=== PATIENT | female | born 1990 | race Two or more races ===

== ENCOUNTER 2024-12-06 12:32 | Emergency (ER) | payer MEDICAID, SELFPAY ==
[2024-12-06 12:33] VITALS: BMI 34.7
[2024-12-06 12:49] VITALS: BP 167/99; PULSE 71; RESP 18; TEMP 36.7; O2SAT 98
--- NOTE | 2024-12-06 12:49 | EKG_ITS ---
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
--- NOTE | 2024-12-06 12:49 | XR_ITS ---
Examination: CT abdomen and pelvis without contrast. Coronal 3-D reconstructions. Sagittal 2-D reconstructions. Date and time of exam:December 06, 2024 1539 hours Comparison July 16, 2021 INDICATIONS: Generalized abdominal pain flank pain today CTDI: vol (mGy): 9.71 DLP: (mGycm): 538 Technique: Axial images of the abdomen have been obtained, 3 mm slice thickness Intravenous contrast material has not been administered. Low dose protocols were performed. One or more of the following dose reduction techniques were used; automated exposure control, adjustment of the mA and/or KV according to patient size, use of iterative reconstruction technique. Findings: No focal liver or splenic lesions No gallstones No pancreatic or adrenal mass. No renal or ureteral calculi, no hydronephrosis Bowel sutures No bowel obstruction No pericecal inflammatory change No diverticulitis Anteverted uterus Mild to moderate free fluid in the pelvis Moderate disc narrowing posteriorly L5-S1 IMPRESSION: No renal or ureteral calculi, no hydronephrosis No bowel obstruction appendicitis or diverticulitis Mild to moderate free fluid in the pelvis, recommend pelvic sonography follow-up
--- NOTE | 2024-12-06 12:49 | PD.EDRME ---
Rapid Medical Screening Exam RME Arrival date/time: 12/06/24 12:32 34-year-old female presents emergency department with complaints of chest pain abdominal pain and back pain Chief Complaint: Abdominal Pain Vital signs: Vital Signs Temperature 98.1 F 12/06/24 12:49 Pulse Rate 71 12/06/24 12:49 Respiratory Rate 18 12/06/24 12:49 Blood Pressure 167/99 H 12/06/24 12:49 Pulse Oximetry (%) 98 12/06/24 12:49 Oxygen Delivery Method Room Air 12/06/24 12:49
--- NOTE | 2024-12-06 12:50 | XR_ITS ---
Examination: PA lateral chest 2 views TECHNIQUE: Upright PA lateral chest 2 views Date and time: December 06, 2024 1252 hours Comparison July 16, 2021 INDICATIONS: Chest pain today FINDINGS: Normal heart size Lungs are clear. The osseous structures are intact IMPRESSION: No active disease.
[2024-12-06 13:39] LABS: Collection Type, Urine Clean Catch
[2024-12-06 13:47] LABS: Basophils # (Auto) 0.0 Thou/mm3 (0.0-0.2); Basophils % (Auto) 0 % (0-2.5); Eosinophils # (Auto) 0.0 Thou/mm3 (0.0-0.5); Eosinophils % (Auto) 0 % (0-10); Hematocrit 24.5 % (36.0-46.0); Immature Granulocytes Auto 0.02 Thou/mm3 (0.00-0.00); Lymphocytes # (Auto) 0.6 Thou/mm3 (1.0-4.8); Lymphocytes % (Auto) 13 % (10-50); Mean Corpuscular HGB Conc 26.9 g/dl (31.0-37.0); Mean Corpuscular Hemoglobin 16.7 pg (25.0-35.0); Mean Corpuscular Volume 62 fL (80-100); Monocytes # (Auto) 0.4 Thou/mm3 (0.0-0.8); Monocytes % (Auto) 8 % (0-12); Neutrophils # (Auto) 3.9 Thou/mm3 (1.8-7.7); Neutrophils % (Auto) 78 % (37-80); Nucleated Red Blood Cell # 0.00 Thou/mm3 (0.00-0.00); Nucleated Red Blood Cell % 0 /100 WBC (0); Platelet Count 313 Thou/mm3 (140-440); RDW Standard Deviation 39.9 fL (36.4-46.3); Red Blood Count 3.95 Miln/mm3 (4.00-5.20); White Blood Count 4.9 Thou/mm3 (3.6-11.0)
[2024-12-06 13:52] LABS: HCG Qualitative,Urine Negative
[2024-12-06 13:53] LABS: Bacteria,Urine 1+; Bilirubin,Urine Negative (Negative); Blood,Urine Negative (Negative); Clarity,Urine Clear (Clear/Hazy); Color,Urine Lt-Yellow (Lt Yel-Yel); Glucose, Urine Negative (Negative); Ketones,Urine Negative (Negative); Leukocyte Esterase,Urine Negative (Negative); Nitrite,Urine Negative (Negative); PH,Urine 6.0 (5.0-7.0); Protein,Urine Negative (Neg - Trace); RBC,Urine 1 /hpf (0-3); Specific Gravity,Urine 1.026 (1.001-1.035); Squamous Epithelial Cell,Urine 2 /hpf (0-5); Urobilinogen,Urine Negative mg/dL (0.0-1.0); WBC,Urine 2 /hpf (0-5)
[2024-12-06 13:54] LABS: Culture Indicated,Urine Yes
[2024-12-06 14:00] LABS: Alanine Aminotransferase 12 U/L (10-49); Albumin, Serum 4.4 gm/dL (3.5-5.0); Albumin/Globulin Ratio 1.6 (1.2-2.2); Alkaline Phosphatase 62 U/L (46-116); Anion Gap 8 (7-16); Aspartate Amino Transferase 37 U/L (0-34); BUN/Creatinine Ratio 10 Ratio (12-20); Bilirubin,Total 0.5 mg/dL (0.3-1.2); Blood Urea Nitrogen 7 mg/dL (9-23); Calcium 9.0 mg/dL (8.3-10.6); Calcium (Corrected) 9.0 mg/dL (8.5-10.1); Carbon Dioxide 21.6 mMol/L (20.0-31.0); Chloride 110 mMol/L (98-107); Creatinine (Component) 0.7 mg/dL (0.6-1.3); Estimated Creatinine Clearance 113.2 mL/min (>60); Globulin 2.8 gm/dL (2.3-3.5); Glucose 89 mg/dL (74-106); Lipase 19 U/L (12-53); Osmolality,Calculated 276 (275-295); Potassium 3.9 mMol/L (3.4-5.1); Sodium 140 mMol/L (136-145); Total Protein 7.2 gm/dL (5.7-8.2); Troponin I < 0.002 ng/mL (0.0-0.045); eGFR > 60 See Note
[2024-12-06 14:15] LABS: Hemoglobin 6.6 g/dL (12.0-16.0)
--- NOTE | 2024-12-06 14:15 | PC.NURSE ---
CALL FROM [facility] IN [facility]. PT'S HGB 6.6, HCT 24.5. RESULTS PUT IN COMMENT FOR PROVIDER TO SEE.
[2024-12-06 16:53] LABS: Ferritin 2 ng/mL (7.3-270.7); Iron 11 mcg/dL (50-170); Percent Iron Saturation 3 % (20-55); Total Iron Binding Capacity 282 mcg/dL (250-425); Unsaturated Iron Binding 271 (225-295)
--- NOTE | 2024-12-06 18:15 | PC.NURSE ---
PT LEFT AMA AND SAID SHE WILL COME BACK IN THE MORNING EARLY FOR THE BLOOD TRANSFUSION. PT STATES SHE HAS A 10 YEAR OLD AND 7 YEAR OLD HOME ALONE AND SHE DOES NOT WANT THEM HOME ALONE AT NIGHT. HAS LEFT FOR WORK. AMA FORM SIGNED.
== END 2024-12-06 18:19 | disposition left against medical advice (07) ==
LOC: SERX 13:55
PROVIDERS: Nurse Practitioner Primary Care; Emergency Provider Emergency Medicine
DX: R10.84 Generalized abdominal pain (principal); R07.9 Chest pain, unspecified; M54.9 Dorsalgia, unspecified; Z53.29 Procedure and treatment not carried out because of patient's decision for other reasons
CPT/HCPCS: 36415; 36430; 71046; 74176; 80053; 81001; 81025; 82728; 83540; 83550; 83690; 84484; 85025; 86850; 86900; 86901; 86923; 87077; 87086; 87186; 93005; 99284

== ENCOUNTER 2024-12-07 08:12 | Inpatient (IN) | payer MEDICAID, SELFPAY ==
[2024-12-07] VITALS (22 sets, daily range): BP systolic 131–178; BP diastolic 74–98; PULSE 51–88; RESP 12–20; TEMP -12.6–37.1; O2SAT 95–100; BMI 34.7
--- NOTE | 2024-12-07 08:25 | PD.EDRME ---
Rapid Medical Screening Exam RME Arrival date/time: 12/07/24 08:12 34-year-old female with no known medical history presents to the emergency room with chief complaint of hemoglobin level. Patient was seen yesterday and had a hemoglobin level of 6.6 but eloped due to not having childcare at home. I have greeted and performed a focused initial assessment of this patient. A comprehensive ED assessment and evaluation of the patient, analysis of all test results, and completion of the medical decision making process will be conducted by additional ED providers. Chief Complaint: General Adult/Misc Complain Time Seen by Provider: 12/07/24 08:19 Vital signs: Vital Signs Temperature 98.5 F 12/07/24 08:18 Pulse Rate 83 12/07/24 08:18 Respiratory Rate 18 12/07/24 08:18 Blood Pressure 148/88 H 12/07/24 08:18 Pulse Oximetry (%) 100 12/07/24 08:18 Oxygen Delivery Method Room Air 12/07/24 08:18 Vital signs reviewed by provider: Yes
[2024-12-07 08:49] LABS: Basophils # (Auto) 0.0 Thou/mm3 (0.0-0.2); Basophils % (Auto) 1 % (0-2.5); Eosinophils # (Auto) 0.0 Thou/mm3 (0.0-0.5); Eosinophils % (Auto) 1 % (0-10); Hematocrit 25.8 % (36.0-46.0); Immature Granulocytes Auto 0.00 Thou/mm3 (0.00-0.00); Lymphocytes # (Auto) 0.8 Thou/mm3 (1.0-4.8); Lymphocytes % (Auto) 25 % (10-50); Mean Corpuscular HGB Conc 26.7 g/dl (31.0-37.0); Mean Corpuscular Hemoglobin 16.6 pg (25.0-35.0); Mean Corpuscular Volume 62 fL (80-100); Monocytes # (Auto) 0.2 Thou/mm3 (0.0-0.8); Monocytes % (Auto) 7 % (0-12); Neutrophils # (Auto) 2.1 Thou/mm3 (1.8-7.7); Neutrophils % (Auto) 65 % (37-80); Nucleated Red Blood Cell # 0.00 Thou/mm3 (0.00-0.00); Nucleated Red Blood Cell % 0 /100 WBC (0); Platelet Count 337 Thou/mm3 (140-440); RDW Standard Deviation 40.1 fL (36.4-46.3); Red Blood Count 4.15 Miln/mm3 (4.00-5.20); White Blood Count 3.3 Thou/mm3 (3.6-11.0)
--- NOTE | 2024-12-07 08:58 | PC.NURSE ---
CALL FROM [facility] IN [facility]. PT'S HGB IS 6.9. RESULTS NOTED ON COMMENTS FOR MD TO SEE.
[2024-12-07 08:59] LABS: Hemoglobin 6.9 g/dL (12.0-16.0)
[2024-12-07 09:03] LABS: INR 1.0 (0.9-1.3); Partial Thromboplastin Time 21.6 Seconds (22.0-36.0); Prothrombin Time 11.0 Seconds (9.0-12.2)
[2024-12-07 09:05] LABS: Alanine Aminotransferase 12 U/L (10-49); Albumin, Serum 4.5 gm/dL (3.5-5.0); Albumin/Globulin Ratio 1.6 (1.2-2.2); Alkaline Phosphatase 61 U/L (46-116); Anion Gap 8 (7-16); Aspartate Amino Transferase 30 U/L (0-34); BUN/Creatinine Ratio 14 Ratio (12-20); Bilirubin,Total 0.6 mg/dL (0.3-1.2); Blood Urea Nitrogen 11 mg/dL (9-23); Calcium 8.8 mg/dL (8.3-10.6); Calcium (Corrected) 8.8 mg/dL (8.5-10.1); Carbon Dioxide 23.0 mMol/L (20.0-31.0); Chloride 110 mMol/L (98-107); Creatinine (Component) 0.8 mg/dL (0.6-1.3); Estimated Creatinine Clearance 99.0 mL/min (>60); Globulin 2.8 gm/dL (2.3-3.5); Glucose 85 mg/dL (74-106); Osmolality,Calculated 279 (275-295); Potassium 3.9 mMol/L (3.4-5.1); Sodium 141 mMol/L (136-145); Total Protein 7.3 gm/dL (5.7-8.2); eGFR > 60 See Note
--- NOTE | 2024-12-07 12:50 | EDNOTE_ITS ---
ED General RME/HPI General Chief complaint: General Adult/Misc Complain Stated complaint: HGB 6.6; SENT BY PCP FOR BLOOD TRANSFUSION Time Seen by Provider: 12/07/24 08:19 Arrival date/time: 12/07/24 08:12 RME / HPI RME / HPI narrative: 12/07/24 08:12 34-year-old female with no known medical history presents to the emergency room with chief complaint of hemoglobin level. Patient was seen yesterday and had a hemoglobin level of 6.6 but eloped due to not having childcare at home. I have greeted and performed a focused initial assessment of this patient. A comprehensive ED assessment and evaluation of the patient, analysis of all test results, and completion of the medical decision making process will be conducted by additional ED providers. DR. JOHNSON MAIN ED EVALUATION 34 year old female patient with history of hypertension, s/p gastric bypass, and pancreatitis presents to the ED referred by her PCP for low hemoglobin levels. Patient states she was evaluated here yesterday for abdominal pain located most to the epigastric region that radiated to her mid back. Accompanied by nausea and vomiting. States she had lab work done. However eloped and PCP today advised she return for a blood transfusion. Reports the abdominal pain today is dull in nature, rated as mild. Denies any obvious bleeding or black/bloody stools. No other associated symptoms reported. Patient mentioned she has received a blood transfusion once before after her C- section 7 years ago. Related Data Home Medications ?Medication ?Instructions ?Recorded ?Confirmed Vits W-Ca,Fe,Fa(<1MG) 1 tab PO QDAY #0 tabs 1 05/17/13 () Allergies Allergy/AdvReac Type Severity Reaction Status Date / Time No Known Allergies Allergy Verified 12/07/24 08:15 Review of Systems Review of Systems Systems Reviewed: All systems reviewed, normal except as documented Past Medical History Past Medical History CARDIAC: Positive Hypertension REPRODUCTIVE: Positive Previous Pregnancies Surgical History SURGICAL: Positive Abdominal Surgery and Section Social History SMOKING STATUS: Never smoker SUBSTANCE USE: does not use ED Exam Narrative Physical exam: GENERAL APPEARANCE: alert and oriented x 4, well-developed, well-nourished, pale HEENT: Normocephalic, atraumatic; pupils equal, round, reactive to light; EOMI; mucous membranes pink, moist; oropharynx clear NECK: Supple LUNGS: CTABL; no wheezes, no rales, no rhonchi HEART: Regular rate, regular rhythm; normal S1, S2; no murmurs ABDOMEN: non distended; normal BS; soft, mild epigastric tenderness, no guarding, no rebound; no masses, no organomegaly, no hernia BACK: no CVA tenderness EXTREMITIES: atraumatic; no edema NEUROLOGIC: awake; alert and oriented x4; cranial nerves II-XII grossly intact; no focal sensory or motor deficits PSYCHIATRIC: appropriate mood and affect SKIN: warm, dry, pale; no rashes Course Quality Measures none Orders Category Date Time Status Occult Blood,Stool (Nursing) NOW Care 12/07/24 12:58 Active Transfuse,blood/blood products NOW Care 12/07/24 10:15 Active Consult to Gastroenterology Stat Cons 12/07/24 16:58 Ordered CBC Stat Lab 12/07/24 08:37 Completed CMP [Comprehensive Metabolic Panel] Stat Lab 12/07/24 08:37 Completed PT [Prothrombin Time with INR] Stat Lab 12/07/24 08:37 Completed PTT [Partial Thromboplastin Time] Stat Lab 12/07/24 08:37 Completed Red Blood Cells Stat Lab 12/07/24 08:37 Completed Type and Screen Stat Lab 12/07/24 08:37 Completed Vital Signs Vital signs: Vital Signs Temperature 98.5 F 12/07/24 08:18 Pulse Rate 83 12/07/24 08:18 Respiratory Rate 18 12/07/24 08:18 Blood Pressure 148/88 H 12/07/24 08:18 Pulse Oximetry (%) 100 12/07/24 08:18 Oxygen Delivery Method Room Air 12/07/24 08:18 Pulse ox is 100% on room air which is adequate. Discharge Plan Plan Patient Disposition: Admit Acute Care w/in Hospital Prescriptions/Referrals Prescriptions/Med Rec: No Action Vits W-Ca,Fe,Fa(<1MG) () 1 TAB tablet 1 tab PO QDAY Qty: 0 Referrals: No Primary/Family,Physician [Primary Care Provider] - In 1 week Problem List Clinical Impression: Upper GI bleed, Symptomatic anemia Patient/Caregiver Discharge Instructions Print Language: Citizen Of [place] Stand Alone Forms: Lori Award Info., Patient Portal Info Letter MDM Narrative MDM hospital course: I, Lizbeth Kaplan, am scribing for and in the presence of Dr. Johnson. Clinical Information Provided by patient Medical Records Reviewed [facility] I reviewed admission from 07/16/2021 through 07/18/2021 Meds/Rx Considered, not Ordered None Labs/Rad/Tests considered, not Ordered None Chronic Illness/Social Conditions which may negatively complicate care or outcome(s)-explain: None or not applicable EKG EKG not done Lab Interpretation Labs: interpreted by ne Lab(s) interpretation(s): Patient is anemic, H/H 6.9/25.8 Imaging Imaging interpretation: none Medication Administration(s) none Consultations/Discussions re: Management Consult #1: Date/time: 12/07/24 4:53 pm Physician, specialty, service, details: I spoke with GI Dr. Kaplan. Discussed patients PMHx, HPI, ED course, exam findings, labs results. He agrees to consult. Diagnosis Most likely dx, and/or detailed dx discussion: Upper GI bleed Symptomatic anemia Dispositon Disposition: Admit
--- NOTE | 2024-12-07 18:18 | PC.CC ---
Patient is a 34 year-old female who presents to the hospital for HGB 6.6, sent in for blood transfusion. Monse TORREZ made [id number] contact with patient. ASW introduced self, role, and reason for visit.?Patient appeared alert and oriented to self, location, and situation.?Patient was pleasant and engaged in initial assessment. Patient confirmed information on demographics and reports to living at home with her significant other, John Crowe and her children. Patient confirmed that her next of kin is John. Patient reports she is employed part-time at [email or web address]. Per patient, she ambulates independently and is able to complete her own ADLs. Patient reports she is overall fairly healthy. Patient does not have a primary provider. For prescription medications she uses [facility]. Upon discharge the patient plans to return back home. assessment services manager to follow up with any discharge needs.
[2024-12-07 19:16] LABS: Hematocrit 30.1 % (36.0-46.0)
[2024-12-07 19:22] LABS: Hemoglobin 8.7 g/dL (12.0-16.0)
--- NOTE | 2024-12-07 20:09 | ESHP_ITS ---
<Statement entered by Jen Alva MD - 12/08/24 15:34> I have reviewed the note and agree with the resident's assessment & plan with exceptions as below. I have personally reviewed labs, imaging, home meds/prior records, examined the patient, formulated and discussed management plan with the IM team. Patient examined at bedside today. Patient reports having low hemoglobin and was sent here after labs were drawn. She reports previously having 2 C-sections in which one of them she needed a blood transfusion for. She denies taking any blood thinners at this time. Denies any recent travel. Sometimes takes ibuprofen for her menstrual cycle once a month. She has never had a EGD or colonoscopy before. She does endorse drinking history in which she has been trying more lately. Will workup patient for GI bleed including varices. Patient to get EGD tonight by Dr. Kaplan. GI on consult, appreciate recs. Patient may need colonoscopy after. #Acute blood loss anemia #Symptomatic anemia DDx: GI Bleed, Cancer, chronic anemia, medication induced FOBT: Pending NSAID use: Ibuprofen Blood thinner use: None Plan: ? Trend CBC ? Transfusion protocol hemoglobin below 7 ? Avoiding any NSAIDs ? SCDs ? Protonix 40 mg BID Jen Alva, PGY-2 Internal Medicine Documentation for date of: 12/07/24 HPI History of Present Illness History of present illness: 34-year-old female with a history of hypertension, status post gastric bypass, and prior pancreatitis presented to the ED per referral from her PCP due to low hemoglobin. Today, her PCP advised return to the ED after reviewing labs, noting a hemoglobin of 6.6 and recommending blood transfusion. She admits to lightheadedness with bending over or standing up abruptly. Denies hematemesis, melena, hematochezia, or other associated symptoms. Denies N/V/D, or fevers. She reports receiving one prior blood transfusion following a approximately seven years ago. She was evaluated in the ED yesterday for worsening epigastric abdominal pain radiating to the mid-back, associated with nausea and vomiting, after having a couple beers the night before. Lab work was obtained, but the patient left prior to completion of care due to lack of childcare. Currently, she describes the abdominal pain as dull and mild. Patient has regular 28 day cycles and reports heavy bleeding the first couple of days into her menstruation. ED Course: In the ED, BP 158/94, HR 71, O2 sat 99% on room air. Labs WBC 3.3, hemoglobin 6.9, MCV 62. Patient was given 2 units of pRBC and hemoglobin nain to 8.7. Patient was also placed on IV NS at 75 mL/h for 1 L. And a stat GI consult was placed for colonoscopy on the same night as inpatient Allergies: NKDA PMHx: Hypertension PSHx: Abdominal Surgery and Section FHx: Diabetes in both parents. SHx: Denies smoking, tobacco use, or illicit drug use. Patient reports drinking 6 cans of beer every other weekend. Reason for Admission: Pt is being admitted for work up of her acute onset anemia. In the setting of recent epigastric pain, an upper GI bleeding source needs to be evaluated by inpatient emergent EGD, Review of Systems Review of Systems Narrative Review of Systems: 12 point ROS was reviewed and is otherwised negative unless stated directly in the HPI Exam Vital Signs Temp Pulse Resp BP Pulse Ox O2 Del Method 98.8 F 71 16 158/94 H 99 Room Air 12/07/24 19:52 12/07/24 19:52 12/07/24 19:52 12/07/24 19:52 12/07/24 19:52 12/07/24 19:52 Narrative Exam General: Alert and oriented x3, No apparent distress. Skin: Intact, Warm, no rashes. HEENT: Normocephalic, Atraumatic. Normal neck range of motion, Supple. Trachea midline. Respiratory: Lungs are clear to auscultation, Breath sounds are equal bilaterally with equal chest expansion. Cardiovascular: RRR, normal S1, S2, No murmurs. Distal pulses 2+ Abdomen: non distended; normal BS; soft, mild epigastric tenderness, no guarding, no rebound; no masses, no organomegaly, no hernia Musculoskeletal/Extremities: No erythema, swelling, tenderness of any joints. No edema of BLE. DP pulses +2/3 b/l. Full active ROM of all four extremities. Neurologic: NEURO: Oriented x3, cranial nerves II to XII grossly intact. Cerebellar exam (bjhbwz-es-rbhz, kvak-dx-oini) intact. Muscle strength 5/5 on UE and LE b/l, Moves extremities x4. Sensation intact to gross touch along C6-T1 and L2-S1 dermatomes. No focal neurologic deficits noted Psych: Thoughts linear and responses appropriate. Results: Labs 12/08/24 12:43 12/08/24 03:52 Labs: Short CBC 12/07/24 12/07/24 Range/Units 08:37 18:45 WBC 3.3 L (3.6-11.0) Thou/mm3 Hgb 6.9 L* 8.7 L D (12.0-16.0) g/dL Hct 25.8 L 30.1 L (36.0-46.0) % Plt Count 337 (140-440) Thou/mm3 BMP 12/07/24 08:37 Sodium 141 Potassium 3.9 Chloride 110 H Carbon Dioxide 23.0 BUN 11 Creatinine 0.8 Glucose 85 Calcium 8.8 Liver Function 12/07/24 Range/Units 08:37 Total Bilirubin 0.6 (0.3-1.2) mg/dL AST 30 (0-34) U/L ALT 12 (10-49) U/L Alkaline Phosphatase 61 (46-116) U/L Albumin 4.5 (3.5-5.0) gm/dL Quality Measures Quality Measures none Medications Home Medications and Allergies Home Medications ?Medication ?Instructions ?Recorded ?Confirmed ?Type No Known Home Medications 12/07/2411/10 History Allergies Allergy/AdvReac Type Severity Reaction Status Date / Time No Known Allergies Allergy Verified 12/07/24 08:15 Visit Medications Sodium Chloride (Ns) 1,000 mls @ 75 mls/hr IV .[id number] RAJAN Stop: 12/08/24 07:53 Assessment & Plan Plan Assessment 34 year old female patient with history of hypertension, s/p gastric bypass, and pancreatitis presented to the ED on 12/07/2024 referred by her PCP for low hemoglobin levels. #Upper GI Bleed #Symptomatic anemia #Acute blood loss anemia Hgb 6.9 at presentation which nain to 8.7 after transfusing 2U of PRBC. As noted above, patient reports lightheadedness with abrupt standing or bending over. Lipase 19 AST 30, ALT 12, and Alk Phos 61 wnl. Plan: GI consulted, who will do EGD this PM. NPO until the procedure. Monitor Hgb with follow up H&H and transfuse if Hgb <7. CBC, CMP, Mg, and PO4 AM draw FOBT #Hypertension Resume home meds as inpatient after medication reconciliation #s/p gastric bypass #h/o Pancreatitis Health Maintenance: Disposition: Med Surg Diet: NPO PPx DVT: PPx GI: Code status: Full This case was discussed with my attending physician, Dr. Nguyen, and senior resident Dr Alva. 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 The patient has previous gastric bypass surgery. She has hypertension. She had anemia before and received blood transfusion during . The patient will have blood anemia workup possible GI studies. I discussed with and supervised the resident physician who took care of this patient. I agree with the assessment and plan as above. A 47
--- NOTE | 2024-12-07 20:32 | ESCONSULT_ITS ---
HPI Data of Consult Requesting Physician: Prince Nguyen MD Primary Care Provider: Physician No Primary/Family Consult Narrative Reason for consult: Posthemorrhagic anemia FOBT positive hemoglobin 6.6 g History of present illness: 34 years old female I been called by the ER physician to evaluate the patient for a low hemoglobin hematocrit of 6.6 with Hemoccult positive stool She does drink alcohol And she has a history of hypertension and gastric bypass bariatric procedure in the past She denies any jamil history of hematemesis melanotic stools or hematochezia She does not excessively bleed except the first 2 days of her menstruation cycle is somewhat heavy She is takes ibuprofen on a routine basis and she took 2 ibuprofens this morning for headache but normally she takes it during her menstrual cycle cc:: cc: Prince Nguyen MD Review of Systems Review of Systems Systems Reviewed: All systems reviewed, normal except as documented Past Medical History Surgical History OTHER SURGICAL HX: As in the history of present illness Meds Home Medications and Allergies Home Medications ?Medication ?Instructions ?Recorded ?Confirmed ?Type Vits W-Ca,Fe,Fa(<1MG) 1 tab PO QDAY #0 tabs 1 05/17/13 History () Allergies Allergy/AdvReac Type Severity Reaction Status Date / Time No Known Allergies Allergy Verified 12/07/24 08:15 Exam Vital Signs Temp Pulse Resp BP Pulse Ox O2 Del Method 98.8 F 71 16 158/94 H 99 Room Air 12/07/24 19:52 12/07/24 19:52 12/07/24 19:52 12/07/24 19:52 12/07/24 19:52 12/07/24 19:52 Constitutional Comments: Alert oriented Routine Respiratory Exam Comments: Normal to auscultation Routine Abdominal Exam Comments: Soft nontender Results Labs 12/07/24 18:45 12/07/24 08:37 Labs: Short CBC 12/07/24 12/07/24 Range/Units 08:37 18:45 WBC 3.3 L (3.6-11.0) Thou/mm3 Hgb 6.9 L* 8.7 L D (12.0-16.0) g/dL Hct 25.8 L 30.1 L (36.0-46.0) % Plt Count 337 (140-440) Thou/mm3 BMP 12/07/24 08:37 Sodium 141 Potassium 3.9 Chloride 110 H Carbon Dioxide 23.0 BUN 11 Creatinine 0.8 Glucose 85 Calcium 8.8 Liver Function 12/07/24 Range/Units 08:37 Total Bilirubin 0.6 (0.3-1.2) mg/dL AST 30 (0-34) U/L ALT 12 (10-49) U/L Alkaline Phosphatase 61 (46-116) U/L Albumin 4.5 (3.5-5.0) gm/dL Assessment and Plan Additional Assessment & Plan Additional Plan: # Occult GI bleeding # Acute posthemorrhagic anemia # Chronic liver 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
[2024-12-07] MEDS: SODIUM CHLORIDE 0.9% 1000 ML 1,000 ML 75 ML IV (20:40)
--- NOTE | 2024-12-07 22:22 | SUR.PHASEI ---
2222 Patient arrived to recovery resting comfortably in [facility], drowsy and talking with staff, breathing unlabored, vital signs stable, denies pain and nausea, report received from Jenni RN
--- NOTE | 2024-12-07 22:57 | SUR.PHASEI ---
2255 Report given to Belia ALSTON, patient meets discharge criteria from recovery, awake and alert, breathing unlabored, vital signs stable, denies pain and nausea 225 Patient transported via gurney to room 260 without incident, Belia ALSTON promptly arrived to patients room, patient able to ambulate from gurney to bed with stand-by assist to the restroom, patient in the restroom when this ticket writer left patients room with Belia ALSTON at bedside to assist patient.
[2024-12-07] MEDS: NA SU/NAHCO3/KC/PEG (Golytely) 4,000 ML BTL 4000 ML PO (23:21)
[2024-12-08] VITALS (17 sets, daily range): BP systolic 133–179; BP diastolic 75–103; PULSE 51–96; RESP 14–19; TEMP 36.2–36.8; O2SAT 95–100; BMI 33.4
[2024-12-08 04:59] LABS: Basophils # (Auto) 0.0 Thou/mm3 (0.0-0.2); Basophils % (Auto) 1 % (0-2.5); Eosinophils # (Auto) 0.0 Thou/mm3 (0.0-0.5); Eosinophils % (Auto) 1 % (0-10); Hematocrit 27.7 % (36.0-46.0); Immature Granulocytes Auto 0.01 Thou/mm3 (0.00-0.00); Lymphocytes # (Auto) 1.4 Thou/mm3 (1.0-4.8); Lymphocytes % (Auto) 36 % (10-50); Mean Corpuscular HGB Conc 28.2 g/dl (31.0-37.0); Mean Corpuscular Hemoglobin 18.6 pg (25.0-35.0); Mean Corpuscular Volume 66 fL (80-100); Monocytes # (Auto) 0.4 Thou/mm3 (0.0-0.8); Monocytes % (Auto) 9 % (0-12); Neutrophils # (Auto) 2.1 Thou/mm3 (1.8-7.7); Neutrophils % (Auto) 54 % (37-80); Nucleated Red Blood Cell # 0.00 Thou/mm3 (0.00-0.00); Nucleated Red Blood Cell % 0 /100 WBC (0); Platelet Count 282 Thou/mm3 (140-440); RDW Standard Deviation 46.3 fL (36.4-46.3); Red Blood Count 4.20 Miln/mm3 (4.00-5.20); White Blood Count 3.9 Thou/mm3 (3.6-11.0)
[2024-12-08 05:51] LABS: Hemoglobin 7.8 g/dL (12.0-16.0)
[2024-12-08 06:01] LABS: Alanine Aminotransferase 8 U/L (10-49); Albumin, Serum 3.8 gm/dL (3.5-5.0); Albumin/Globulin Ratio 1.6 (1.2-2.2); Alkaline Phosphatase 52 U/L (46-116); Anion Gap 10 (7-16); Aspartate Amino Transferase 22 U/L (0-34); BUN/Creatinine Ratio 12 Ratio (12-20); Bilirubin,Total 0.9 mg/dL (0.3-1.2); Blood Urea Nitrogen 7 mg/dL (9-23); Calcium 8.3 mg/dL (8.3-10.6); Calcium (Corrected) 8.5 mg/dL (8.5-10.1); Carbon Dioxide 20.8 mMol/L (20.0-31.0); Chloride 111 mMol/L (98-107); Creatinine (Component) 0.6 mg/dL (0.6-1.3); Estimated Creatinine Clearance 132.1 mL/min (>60); Globulin 2.4 gm/dL (2.3-3.5); Glucose 70 mg/dL (74-106); Magnesium 1.5 mg/dL (1.6-2.6); Osmolality,Calculated 279 (275-295); Phosphorous 3.6 mg/dL (2.4-5.1); Potassium 3.4 mMol/L (3.4-5.1); Sodium 142 mMol/L (136-145); Total Protein 6.2 gm/dL (5.7-8.2); eGFR > 60 See Note
[2024-12-08] MEDS: Magnesium Sulfate 2 GM Ivpb 2 GM/50 ML BAG IV (08:14)
[2024-12-08 13:09] LABS: Hematocrit 31.0 % (36.0-46.0)
[2024-12-08 13:42] LABS: Hemoglobin 8.7 g/dL (12.0-16.0)
--- NOTE | 2024-12-08 17:26 | ESPR_ITS ---
<Statement entered by Jen Alva MD - 12/09/24 17:52> I have reviewed the note and agree with the resident's assessment & plan with exceptions as below. I have personally reviewed labs, imaging, home meds/prior records, examined the patient, formulated and discussed management plan with the IM team. Patient examined at bedside today. Patient reports improvement. Patient to be undergoing colonoscopy tonight. Hemoglobin stable today. Will evaluate patient after colonoscopy. Repeat hematology and chemistry in AM. Jen Alva, PGY-2 Internal Medicine Documentation for date of: 12/08/24 Subjective Subjective Interval history: Patient was seen and examined at bedside. No acute events took place overnight. Patient denies any body aches, hematemesis, melena, hematochezia, N/V/D. Patient awaits colonoscopy by Dr Kaplan if unremarkable upper GI findings from EGD yesterday night. Patient has dependents at home and prefers to leave as soon as possible. Exam Vital Signs Temp Pulse Resp BP Pulse Ox O2 Del Method O2 Flow Rate 97.5 F 70 19 158/97 H 99 Room Air 3 12/08/24 16:12/08/24 16:12/08/24 16:12/08/24 16:12/08/24 16:12/08/24 16:12/07/24 22:10 Narrative Exam General: Alert and oriented x3, No apparent distress. Skin: Intact, Warm, no rashes. HEENT: Normocephalic, Atraumatic. Normal neck range of motion, Supple. Trachea midline. Respiratory: Lungs are clear to auscultation, Breath sounds are equal bilaterally with equal chest expansion. Cardiovascular: RRR, normal S1, S2, No murmurs. Distal pulses 2+ Abdomen: non distended; normal BS; soft, mild epigastric tenderness, no guarding, no rebound; no masses, no organomegaly, no hernia Musculoskeletal/Extremities: No erythema, swelling, tenderness of any joints. No edema of BLE. DP pulses +2/3 b/l. Full active ROM of all four extremities. Neurologic: NEURO: Oriented x3, cranial nerves II to XII grossly intact. Muscle strength 5/5 on UE and LE b/l, Moves extremities x4. Sensation intact to gross touch along C6-T1 and L2-S1 dermatomes. No focal neurologic deficits noted Psych: Thoughts linear and responses appropriate. Objective Labs 12/09/24 04:35 12/09/24 04:35 Labs: Laboratory Results - last 24 hr 12/07/24 12/07/24 12/08/24 08:37 18:45 03:52 WBC 3.9 RBC 4.20 Hgb 8.7 L D 7.8 L Hct 30.1 L 27.7 L MCV 66 L MCH 18.6 L MCHC 28.2 L RDW Std Deviation 46.3 Plt Count 282 D Neut % (Auto) 54 Lymph % (Auto) 36 [place] % (Auto) 9 Eos % (Auto) 1 Baso % (Auto) 1 Neut # (Auto) 2.1 Lymph # (Auto) 1.4 [place] # (Auto) 0.4 Eos # (Auto) 0.0 Baso # (Auto) 0.0 Immature Gran # (Auto) 0.01 H Absolute Nucleated RBC 0.00 Immature Gran % 0 Nucleated RBC % 0 Sodium 142 Potassium 3.4 D Chloride 111 H Carbon Dioxide 20.8 Anion Gap 10 BUN 7 L Creatinine 0.6 Estim Creat Clear Calc 132.1 eGFR > 60 BUN/Creatinine Ratio 12 Glucose 70 L Calculated Osmolality 279 Calcium 8.3 Corrected Calcium 8.5 Phosphorus 3.6 Magnesium 1.5 L Total Bilirubin 0.9 AST 22 ALT 8 L Alkaline Phosphatase 52 Total Protein 6.2 Albumin 3.8 D Globulin 2.4 Albumin/Globulin Ratio 1.6 Crossmatch See Detail 12/08/24 12:43 WBC RBC Hgb 8.7 L Hct 31.0 L MCV MCH MCHC RDW Std Deviation Plt Count Neut % (Auto) Lymph % (Auto) [place] % (Auto) Eos % (Auto) Baso % (Auto) Neut # (Auto) Lymph # (Auto) [place] # (Auto) Eos # (Auto) Baso # (Auto) Immature Gran # (Auto) Absolute Nucleated RBC Immature Gran % Nucleated RBC % Sodium Potassium Chloride Carbon Dioxide Anion Gap BUN Creatinine Estim Creat Clear Calc eGFR BUN/Creatinine Ratio Glucose Calculated Osmolality Calcium Corrected Calcium Phosphorus Magnesium Total Bilirubin AST ALT Alkaline Phosphatase Total Protein Albumin Globulin Albumin/Globulin Ratio Crossmatch Quality Measures Quality Measures none Assessment & Plan Plan Plan Assessment 34 year old female patient with history of hypertension, s/p gastric bypass, and pancreatitis presented to the ED on 12/07/2024 referred by her PCP for low hemoglobin levels. #GI Bleed #Symptomatic anemia #Acute blood loss anemia Hgb 6.9 at presentation which nain to 8.7 after transfusing 2U of PRBC. Repeat Hgb measurement: 7.8, and 8.7 (12/08) As noted above, patient reports lightheadedness with abrupt standing or bending over. Lipase 19 LFT's WNL. FOBT positive EGD ([id number]): Normal esophagus. Erendira-en-Y gastrojejunostomy intact with healthy appearing mucosa. Plan: GI to consider colonoscopy after unremarkable EGD study; Pt on clear liquid diet Monitor Hgb with follow up H&H and transfuse if Hgb <7. CBC, CMP, Mg, and PO4 AM draw Recommend continued iron supplementation after colonoscopy. #Hypertension Resume home meds as inpatient after medication reconciliation #s/p gastric bypass #h/o Pancreatitis Health Maintenance: Disposition: Med Surg Diet: clear liquid PPx DVT: PPx GI: Code status: Full This case was discussed with my attending physician, Dr. Nguyen, and senior resident Dr Alva. Deirdre Zarate, DO PGY I Attending Provider Attestation/Addendum Patient was seen and examined with housestaff. VItals stable, no significant drop in H and H. Further GI work up pending. Discussed with housestaff.
--- NOTE | 2024-12-08 18:55 | SUR.PHASEI ---
Pt. arrived to recovery via gurney, eyes open, responds to verbal commands, VSS, no c/o pain or nausea at this time. Report received from Yana ALSTON.
--- NOTE | 2024-12-08 19:20 | SUR.PHASEI ---
Called and gave report on pt. s/p colonoscopy to Mariann RN on telemetry.
--- NOTE | 2024-12-08 19:25 | SUR.PHASEI ---
Pt. transferred to room 260 via AYANNA weller, no c/o pain or nausea at this time, IV flushed and Mariann christiansen RN assumed care of pt.
[2024-12-08] MEDS: LOSARTAN POTASSIUM 25 MG TABLET PO (20:39)
--- NOTE | 2024-12-08 22:00 | PC.NURSE ---
At 19:50, patient?s blood pressure was noted to be 153/82; patient typically trends with systolic pressures in the 170s and has no scheduled blood pressure medications since current hospital visit. When asked, patient reported a history of taking blood pressure medications prior to undergoing gastric bypass surgery 3 years ago but discontinued them after losing insurance coverage; she also confirmed having no current home medications. Patient stated her usual blood pressure at home is in the 170s/80s range. Education was provided regarding the risks associated with hypertension. At 19:57 MD was notified and prescribed Losartan 25 mg once daily, with the first dose scheduled to begin at 2014.
[2024-12-09] VITALS: BP 150/93; PULSE 48; PULSE 49; RESP 13; TEMP 36.2; O2SAT 99
[2024-12-09 04:00] VITALS: BP 138/84; PULSE 57; PULSE 62; RESP 13; TEMP 36.3; O2SAT 99
[2024-12-09 06:00] VITALS: BMI 32.7
[2024-12-09 06:30] LABS: Basophils # (Auto) 0.0 Thou/mm3 (0.0-0.2); Basophils % (Auto) 1 % (0-2.5); Eosinophils # (Auto) 0.1 Thou/mm3 (0.0-0.5); Eosinophils % (Auto) 1 % (0-10); Hematocrit 29.5 % (36.0-46.0); Immature Granulocytes Auto 0.01 Thou/mm3 (0.00-0.00); Lymphocytes # (Auto) 1.2 Thou/mm3 (1.0-4.8); Lymphocytes % (Auto) 28 % (10-50); Mean Corpuscular HGB Conc 28.8 g/dl (31.0-37.0); Mean Corpuscular Hemoglobin 19.1 pg (25.0-35.0); Mean Corpuscular Volume 66 fL (80-100); Monocytes # (Auto) 0.5 Thou/mm3 (0.0-0.8); Monocytes % (Auto) 10 % (0-12); Neutrophils # (Auto) 2.6 Thou/mm3 (1.8-7.7); Neutrophils % (Auto) 59 % (37-80); Nucleated Red Blood Cell # 0.00 Thou/mm3 (0.00-0.00); Nucleated Red Blood Cell % 0 /100 WBC (0); Platelet Count 262 Thou/mm3 (140-440); RDW Standard Deviation 48.1 fL (36.4-46.3); Red Blood Count 4.44 Miln/mm3 (4.00-5.20); White Blood Count 4.3 Thou/mm3 (3.6-11.0)
[2024-12-09 06:43] LABS: Hemoglobin 8.5 g/dL (12.0-16.0)
[2024-12-09 07:05] LABS: Alanine Aminotransferase 8 U/L (10-49); Albumin, Serum 4.1 gm/dL (3.5-5.0); Albumin/Globulin Ratio 1.6 (1.2-2.2); Alkaline Phosphatase 55 U/L (46-116); Anion Gap 11 (7-16); Aspartate Amino Transferase 21 U/L (0-34); BUN/Creatinine Ratio 10 Ratio (12-20); Bilirubin,Total 0.8 mg/dL (0.3-1.2); Blood Urea Nitrogen 6 mg/dL (9-23); Calcium 8.7 mg/dL (8.3-10.6); Calcium (Corrected) 8.7 mg/dL (8.5-10.1); Carbon Dioxide 20.7 mMol/L (20.0-31.0); Chloride 107 mMol/L (98-107); Creatinine (Component) 0.6 mg/dL (0.6-1.3); Estimated Creatinine Clearance 128.0 mL/min (>60); Globulin 2.6 gm/dL (2.3-3.5); Glucose 53 mg/dL (74-106); Magnesium 2.1 mg/dL (1.6-2.6); Osmolality,Calculated 272 (275-295); Phosphorous 4.1 mg/dL (2.4-5.1); Potassium 3.8 mMol/L (3.4-5.1); Sodium 139 mMol/L (136-145); Total Protein 6.7 gm/dL (5.7-8.2); eGFR > 60 See Note
[2024-12-09 07:56] VITALS: BP 151/97; PULSE 83; RESP 20; TEMP 36.4; O2SAT 97
[2024-12-09 08:00] VITALS: PULSE 83
[2024-12-09 08:02] VITALS: BP 151/97; PULSE 83
[2024-12-09] MEDS: ASCORBIC ACID 250 MG TABLET 500 MG PO (08:02)
[2024-12-09] MEDS: FERROUS SULF 325 MG TABLET PO (08:02)
[2024-12-09] MEDS: LOSARTAN POTASSIUM 25 MG TABLET PO (08:02)
[2024-12-09] MEDS: IRON SUCROSE CPLX INJ 20 MG/ML VIAL 5 ML 200 MG IVP (10:52)
--- NOTE | 2024-12-09 10:53 | PC.SS ---
SS met with patient to discuss insurance coverage. Patient now shows straight [employer]. She was concerned that her d/c meds would not be covered. However, she has coverage for this and will need to follow up picking a managed plan. D/c home today.
--- NOTE | 2024-12-09 11:55 | ESDS_ITS ---
<Statement entered by Leda Roque DO - 12/10/24 08:41> I, Leda Roque DO, attest that I was physically present for the raygoza portions of the service and evaluated the patient with the resident and I reviewed and discussed the case with the resident and agree with the resident's findings and plans of care as documented above <Statement entered by Jen Alva MD - 12/09/24 21:11> I have reviewed the note and agree with the resident's assessment & plan with exceptions as below. I have personally reviewed labs, imaging, home meds/prior records, examined the patient, formulated and discussed management plan with the IM team. Pt examined at bedside. Colonoscopy found hemorrhoids for patient, hgb stable at the time of discharge. Pt received x1 Venofer 200 mg inj prior to discharge. Pt to continue with ferrous sulfate, and vitamin C as prescribed outpatient. Pt to avoid all NSAIDs upon d/c and to repeat CBC within one week of d/c. Iron defi ciency anemia likely related to gastric bypass hx and menorrhagia. Jen Alva, PGY-2 Internal Medicine Planned Discharge Date 12/09/24 DS: Providers Provider Date of admission: 12/07/24 18:24 Primary care physician: Physician No Primary/Family Admitting Provider: Prince Nguyen MD Attending Provider on Admission: Prince Nguyen MD Consults: 12/07/24 16:58 Consult to Gastroenterology Stat Comment: Consulting Provider: Gabe Kaplan Attending Provider on DC: Leda Roque DO Discharging Provider: Leda Roque DO DS: Diagnosis Problem List Completed Was Problem List Reviewed/Reconciled?: Yes Hospital Course Hospital Course Hospital course: Ms. Lopez is a 34 year old female patient with history of hypertension, s/p gastric bypass, and pancreatitis presented to the ED on 12/07/2024 referred by her PCP for low hemoglobin levels she was admitted for symptomatic anemia. She does not excessively bleed except the first 2 days of her menstruation cycle is somewhat heavy. She was f/t/h +FOBT and colonoscopy showed colonic hemorrhoids and EGD was normal. ED Course: In the ED, BP 158/94, HR 71, O2 sat 99% on room air. Labs WBC 3.3, hemoglobin 6.9, MCV 62. Patient was given 2 units of pRBC and hemoglobin nain to 8.7. Patient was also placed on IV NS at 75 mL/h for 1 L. And a stat GI consult was placed for colonoscopy on the same night as inpatient Hospital Course: +FOBT. GI consulted, EGD was normal and colonsocopy showed perianal hermorrhoids with entire colon exam as normal. She was transfused with 2 units of RBC increasing intital hemoglobin from 7.8 to 8.7. Ms. Lopez is a 34 year old female patient with history of hypertension, s/p gastric bypass, and pancreatitis presented to the ED on 12/07/2024 referred by her PCP for low hemoglobin levels she was admitted for symptomatic anemia. After ruling out GI bleed and having no clinical signs of infection, the most likely etiology of her anemia is iron deficiency secondary to nutritional malabsorption s/p bariatric surgery. Discharge instructions: Follow up with your PCP within one week of discharge Take your new blood pressure medicine, Losartan, take it as prescribed Take iron and vitamin C as prescribed. This is for your iron deficiency anemia I am also prescribing you a multivitamin, take as prescribed Avoid taking all NSAIDs including naproxen (Aleeve), ibuprofen (Advil/Motrin). Take Tylenol for pain Avoid eating excessive spicy foods, and consider a diet rich in iron (Leafy Greens, Beet juice and some Red meat) Consider seeing your OB-GENERAL REPAIRER in for further evaluation of anemia Perform a blood count within one week of discharge (I will give you a lab slip) If you see bleeding with your bowel movements, return to ER Return to ER if your symptoms worsen or return Patient was admitted for: #Symptomatic anemia #Iron deficiency anemia, likely multifactorial #GI Bleed r/o #s/p gastric bypass #h/o Pancreatitis #Hypertension Patient seen and reviewed with attending Dr. Roque and supervising resident Dr. Alva. Obey Mejias MD PGY-1 Time Spent with Patient Time attestation: Total time spent providing and/or coordinating discharge services: Time spent: Greater than 30 minutes Exam Vital Signs Temp Pulse Resp BP Pulse Ox O2 Del Method O2 Flow Rate 97.6 F 83 20 151/97 H 97 Room Air 3 12/09/24 07:56 12/09/24 08:02 12/09/24 07:56 12/09/24 08:02 12/09/24 07:56 12/09/24 07:56 12/08/24 18:45 Narrative Exam General: appears NAD, but uncomfortable, obese, alert, interactive HEENT: NC/AT, EOMI, good conjugate gaze Neck: Supple, No masses, No JVD, normal range of motion CVS: S1S2 Regular rate and rhythm, No murmurs, rubs or gallops Lungs: Normal respiratory effort, no wheezing rhonchi or rales, CTAB Abd: Soft, no tenderness to palpation, no guarding Ext: No edema, warm well perfused, normal tone and ROM, strength and sensation intact, +2 dp equal bilaterally Skin: Intact, no rashes, no lesions, no erythema Neuro: AOx3, cranial nerves II through XII intact Psych: Appropriate mood and affect Discharge Plan Plan Patient Disposition: HOME (Self Care) Patient condition on transfer: Stable Care Plan Goals: Discharge Instructions: Follow up with your PCP within one week of discharge Take your new blood pressure medicine, Losartan, take it as prescribed Take iron and vitamin C as prescribed. This is for your iron deficiency anemia I am also prescribing you a multivitamin, take as prescribed Avoid taking all NSAIDs including naproxen (Aleeve), ibuprofen (Advil/Motrin). Take Tylenol for pain Avoid eating excessive spicy foods, and consider a diet rich in iron (Leafy Greens, Beet juice and some Red meat) Consider seeing your OB-GENERAL REPAIRER in for further evaluation of anemia Perform a blood count within one week of discharge (I will give you a lab slip) If you see bleeding with your bowel movements, return to ER Return to ER if your symptoms worsen or return [facility] [address] [place] [address] Prescriptions/Referrals Prescriptions/Med Rec: New losartan 25 mg tablet 25 mg PO QDAY 30 Days Qty: 30 0RF Rx Instructions: Take one tablet by mouth every day ferrous sulfate 325 mg (65 mg iron) tablet 325 mg PO Q OTHER DAY 30 Days Qty: 15 0RF Rx Instructions: Take one tablet by mouth every other day ascorbic acid (vitamin C) 500 mg capsule 500 mg PO EVERYOTHERDAY 30 Days Qty: 15 0RF Rx Instructions: Take one tablet by mouth every other day with iron multivitamin Tablet 1 tab PO QDAY 30 Days Qty: 30 0RF Rx Instructions: Take one tablet by mouth every day Referrals: No Primary/Family,Physician [Primary Care Provider] - Outpatient Orders (i.e. Home Health, Labs, Imaging): CBC (Routine) Timeframe: 1 Week Location: Determined by Patient Ordered By: Jen Alva Patient/Caregiver Discharge Instructions Discharge Activity: activity as tolerated Education Materials: Discharge Instructions- Eating ..., Bariatric Surg Risks Complications, ED Anemia, Iron-Deficiency (Adult) Print Language: Kazakh Stand Alone Forms: Lori Award Info., Patient Portal Info Letter Discharge Order Discharge Orders: Discharge (Routine); Ordered 12/09/24 Ordered By: Jen Alva Quality Discharge Quality Measures VTE prophylaxis (SCDs) and none
--- NOTE | 2024-12-09 19:35 | PD.IMPROG ---
Documentation for date of: 12/09/24 Subjective Subjective Interval history: Late entry for the note Case discussed this morning with the internal medicine team Okay to discharge patient home on iron along with vitamin C 3 times a day the iron pill and the vitamin C have to be taken together Exam Vital Signs Temp Pulse Resp BP Pulse Ox O2 Del Method O2 Flow Rate 97.6 F 83 20 151/97 H 97 Room Air 3 12/09/24 07:56 12/09/24 08:02 12/09/24 07:56 12/09/24 08:02 12/09/24 07:56 12/09/24 07:56 12/08/24 18:45 Objective Labs 12/09/24 04:35 12/09/24 04:35 Labs: Laboratory Results - last 24 hr 12/09/24 04:35 WBC 4.3 RBC 4.44 Hgb 8.5 L Hct 29.5 L MCV 66 L MCH 19.1 L MCHC 28.8 L RDW Std Deviation 48.1 H Plt Count 262 Neut % (Auto) 59 Lymph % (Auto) 28 [place] % (Auto) 10 Eos % (Auto) 1 Baso % (Auto) 1 Neut # (Auto) 2.6 Lymph # (Auto) 1.2 [place] # (Auto) 0.5 Eos # (Auto) 0.1 Baso # (Auto) 0.0 Immature Gran # (Auto) 0.01 H Absolute Nucleated RBC 0.00 Immature Gran % 0 Nucleated RBC % 0 Sodium 139 Potassium 3.8 Chloride 107 Carbon Dioxide 20.7 Anion Gap 11 BUN 6 L Creatinine 0.6 Estim Creat Clear Calc 128.0 eGFR > 60 BUN/Creatinine Ratio 10 L Glucose 53 L Calculated Osmolality 272 L Calcium 8.7 Corrected Calcium 8.7 Phosphorus 4.1 Magnesium 2.1 Total Bilirubin 0.8 AST 21 ALT 8 L Alkaline Phosphatase 55 Total Protein 6.7 Albumin 4.1 Globulin 2.6 Albumin/Globulin Ratio 1.6 Impressions Impression: Normal gastrojejunostomy site no ulceration Internal hemorrhoids Anemia due to Erendira-en-Y gastrojejunostomy patient should be sent home on iron 3 and 25 mg p.o. 3 times daily along with vitamin C 500 mg p.o. Assessment & Plan A&P Narrative # Occult GI bleeding # Acute posthemorrhagic anemia # Chronic liver 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 Time Spent With Patient Time: Total time spent is greater than 50% in coordination of care (as documented) at patient's floor/unit and/or counseling patient:
== END 2024-12-09 11:50 | disposition home or self-care (01) | DRG 254 ==
LOC: SERX 17:48 → SERHOLD 18:35 → S2NX 23:11
PROVIDERS: Nurse Practitioner Family; Specialist; Admitting Provider Internal Medicine; Emergency Provider Emergency Medicine; Visit Provider Internal Medicine
PROC: (CPT 43239; principal; 2024-12-07 14:45)
PROC: 0DJD8ZZ Inspection of Lower Intestinal Tract, Via Natural or Artificial Opening Endoscopic (ICD-10-PCS; CPT 45378; principal; 2024-12-08 19:00)
DX: K91.2 Postsurgical malabsorption, not elsewhere classified (principal); Z98.84 Bariatric surgery status; I10 Essential (primary) hypertension; D62 Acute posthemorrhagic anemia; Z98.0 Intestinal bypass and anastomosis status; K70.9 Alcoholic liver disease, unspecified; K64.8 Other hemorrhoids
CPT/HCPCS: 36415; 36430; 80053; 83735; 84100; 85014; 85018; 85025; 85610; 85730; 86850; 86900; 86901; 86923; 96360; 96361; 99284; J1200; J1756; J2250; J3010; J3475; J7030; P9016; A9270

== ENCOUNTER 2025-01-20 07:43 | Emergency (ER) | payer SELFPAY ==
[2025-01-20 07:44] VITALS: BMI 33.6
--- NOTE | 2025-01-20 07:57 | EKG_ITS ---
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
[2025-01-20 08:04] VITALS: BP 169/98; PULSE 81; RESP 18; TEMP 36.8; O2SAT 97
--- NOTE | 2025-01-20 08:10 | XR_ITS ---
Examination: Pelvic ultrasound, transabdominal, complete Technique: Transabdominal ultrasound of the pelvis performed using grayscale imaging Date and time of exam: January 20, 2025 0814 hours INDICATIONS: Abdominal pain beginning 3 days ago FINDINGS: Uterus 9.3 cm endometrial stripe 1.0 cm No uterine mass or intrauterine gestation Right ovary 3.6 cm arterial flow 20 x 14 mm cyst Left ovary 3.2 cm arterial flow 13 x 11 mm cyst Fluid in the bilateral adnexal regions IMPRESSION: Fluid in the bilateral adnexal regions, consider pelvic inflammatory disease
--- NOTE | 2025-01-20 08:11 | PD.EDRME ---
Rapid Medical Screening Exam RME Arrival date/time: 01/20/25 07:43 34-year-old female with a history of iron deficiency anemia presents to the emergency room with a chief complaint of 8 out of 10 diffuse abdominal pain, chest pain, nausea and vomiting x 3 days I have greeted and performed a focused initial assessment of this patient. A comprehensive ED assessment and evaluation of the patient, analysis of all test results, and completion of the medical decision making process will be conducted by additional ED providers. Chief Complaint: Abdominal Pain Vital signs: Vital Signs Temperature 98.3 F 01/20/25 08:04 Pulse Rate 81 01/20/25 08:04 Respiratory Rate 18 01/20/25 08:04 Blood Pressure 169/98 H 01/20/25 08:04 Pulse Oximetry (%) 97 01/20/25 08:04 Oxygen Delivery Method Room Air 01/20/25 08:04 Vital signs reviewed by provider: Yes
[2025-01-20] MEDS: MG HYD/AL HYD/SIME (Maalox Reg) SUSP 30 ML UDC PO (09:27)
[2025-01-20] MEDS: ONDANSETRON ODT 4 MG TABRAP PO (09:27)
[2025-01-20] MEDS: HYDROcodone/APAP 5/325 TABLET 1 TAB PO (09:27)
[2025-01-20 09:42] LABS: Collection Type, Urine Clean Catch; RBC,Urine 0 /hpf (0-3); WBC,Urine 0 /hpf (0-5)
[2025-01-20 09:43] LABS: Basophils # (Auto) 0.0 Thou/mm3 (0.0-0.2); Basophils % (Auto) 0 % (0-2.5); Eosinophils # (Auto) 0.0 Thou/mm3 (0.0-0.5); Eosinophils % (Auto) 0 % (0-10); Hematocrit 35.9 % (36.0-46.0); Hemoglobin 11.1 g/dL (12.0-16.0); Immature Granulocytes Auto 0.04 Thou/mm3 (0.00-0.00); Lymphocytes # (Auto) 0.5 Thou/mm3 (1.0-4.8); Lymphocytes % (Auto) 6 % (10-50); Mean Corpuscular HGB Conc 30.9 g/dl (31.0-37.0); Mean Corpuscular Hemoglobin 22.6 pg (25.0-35.0); Mean Corpuscular Volume 73 fL (80-100); Monocytes # (Auto) 0.3 Thou/mm3 (0.0-0.8); Monocytes % (Auto) 4 % (0-12); Neutrophils # (Auto) 8.2 Thou/mm3 (1.8-7.7); Neutrophils % (Auto) 90 % (37-80); Nucleated Red Blood Cell # 0.00 Thou/mm3 (0.00-0.00); Nucleated Red Blood Cell % 0 /100 WBC (0); Platelet Count 222 Thou/mm3 (140-440); RDW Standard Deviation 60.5 fL (36.4-46.3); Red Blood Count 4.92 Miln/mm3 (4.00-5.20); White Blood Count 9.1 Thou/mm3 (3.6-11.0)
--- NOTE | 2025-01-20 09:45 | XR_ITS ---
Examination: CT abdomen with intravenous contrast CT pelvis with intravenous contrast 2-D coronal reconstructions 2-D sagittal reconstructions Date and time of exam:January 20, 2025, 1253 hours, comparison December 06, 2024 INDICATIONS: Generalized abdominal pain today, gastric bypass 4 years ago. CTDI: vol (mGy) 12.2 DLP: (mGycm) 686 Technique: Multiple axial sections of the abdomen and pelvis have been obtained. 64 slice high-resolution scanner used. 3 mm axial sections have been obtained, post intravenous injection 60 cc [id number] 2-D sagittal, coronal reconstructions obtained. Low dose protocols were performed. One or more of the following dose reduction techniques were used; automated exposure control, adjustment of the mA and/or KV according to patient size, use of iterative reconstruction technique. Findings: Minimal fluid subcapsular to the liver No focal liver or splenic lesions Mildly distended gallbladder No pancreatic or adrenal mass. No renal or ureteral calculi Mild fluid below the liver Anteverted uterus Urinary bladder intact Focal thickening of small bowel loops, coronal image 57 IMPRESSION: Minimal fluid subcapsular to and below the liver, clinical correlation advised Distended gallbladder, recommend hepatobiliary sonography follow-up. Central focal thickening of small bowel loops, coronal image 57, differential would include entities such as enteritis, Crohn's disease, recommend small bowel series follow-up
[2025-01-20] MEDS: SODIUM CHLORIDE 0.9% 1000 ML 1,000 ML 999 ML IV (09:49)
[2025-01-20 09:54] VITALS: PULSE 64
[2025-01-20 10:02] LABS: Alanine Aminotransferase 13 U/L (10-49); Albumin, Serum 4.6 gm/dL (3.5-5.0); Albumin/Globulin Ratio 1.8 (1.2-2.2); Alkaline Phosphatase 69 U/L (46-116); Anion Gap 11 (7-16); Aspartate Amino Transferase 20 U/L (0-34); BUN/Creatinine Ratio 10 Ratio (12-20); Bilirubin,Total 0.6 mg/dL (0.3-1.2); Blood Urea Nitrogen 7 mg/dL (9-23); Calcium 9.6 mg/dL (8.3-10.6); Calcium (Corrected) 9.6 mg/dL (8.5-10.1); Carbon Dioxide 25.1 mMol/L (20.0-31.0); Chloride 104 mMol/L (98-107); Creatinine (Component) 0.7 mg/dL (0.6-1.3); Estimated Creatinine Clearance 111.3 mL/min (>60); Globulin 2.5 gm/dL (2.3-3.5); Glucose 98 mg/dL (74-106); Osmolality,Calculated 277 (275-295); Potassium 3.5 mMol/L (3.4-5.1); Sodium 140 mMol/L (136-145); Total Protein 7.1 gm/dL (5.7-8.2); Troponin I < 0.002 ng/mL (0.0-0.045); eGFR > 60 See Note
[2025-01-20 10:04] LABS: Bacteria,Urine Rare; Bilirubin,Urine Negative (Negative); Blood,Urine Negative (Negative); Clarity,Urine Clear (Clear/Hazy); Color,Urine Lt-Yellow (Lt Yel-Yel); Glucose, Urine Negative (Negative); Ketones,Urine 1+ (Negative); Leukocyte Esterase,Urine Negative (Negative); Nitrite,Urine Negative (Negative); PH,Urine 7.0 (5.0-7.0); Protein,Urine Negative (Neg - Trace); Specific Gravity,Urine 1.011 (1.001-1.035); Squamous Epithelial Cell,Urine 3 /hpf (0-5); Urobilinogen,Urine Negative mg/dL (0.0-1.0)
--- NOTE | 2025-01-20 10:04 | PD.EDADULT ---
ED General RME/HPI General Chief complaint: Abdominal Pain Stated complaint: STOMACH ACHE, VOMITING, CHEST PAIN Time Seen by Provider: 01/20/25 08:13 Arrival date/time: 01/20/25 07:43 Limitations: no limitations RME / HPI RME / HPI narrative: 01/20/25 07:43 34-year-old female with a history of iron deficiency anemia presents to the emergency room with a chief complaint of 8 out of 10 diffuse abdominal pain, chest pain, nausea and vomiting x 3 days I have greeted and performed a focused initial assessment of this patient. A comprehensive ED assessment and evaluation of the patient, analysis of all test results, and completion of the medical decision making process will be conducted by additional ED providers. DR. BLOCK MAIN ED EVALUATION: 34 year old female with history of hypertension, s/p Erendira-en-Y gastric bypass presents to the ED for intermittent vague abdominal discomfort that began 3 weeks ago and worsening in the last 3 days. Accompanied by myalgias. Denies vomiting, diarrhea, fevers, chills, or urinary symptoms. Patient mentioned she has failed to follow up with surgeon or GI post surgery years ago. Related Data Allergies Allergy/AdvReac Type Severity Reaction Status Date / Time No Known Allergies Allergy Verified 01/20/25 07:44 Review of Systems Review of Systems Systems Reviewed: All systems reviewed, normal except as documented Past Medical History Past Medical History CARDIAC: Positive Hypertension RESPIRATORY: Positive Asthma REPRODUCTIVE: Positive Previous Pregnancies OTHER HISTORY: Positive Blood Transfusions Surgical History SURGICAL: Positive Abdominal Surgery and Section Social History SMOKING STATUS: Never smoker SUBSTANCE USE: does not use ED Exam General Limitations: Present no limitations General appearance: Present alert and in no apparent distress Head Head exam: Present atraumatic, normocephalic and normal inspection Eye Eye exam: Present normal appearance, PERRL and EOMI ENT ENT exam: Present normal exam, normal oropharynx and mucous membranes moist Neck Neck exam: Present normal inspection, full ROM and trachea midline Chest Chest inspection: Present normal inspection and symmetric chest wall rise Respiratory Respiratory exam: Present normal lung sounds bilaterally Cardiovascular Cardiovascular exam: Present regular rate, normal rhythm and normal heart sounds Abdominal Exam Abdominal exam: Present soft and normal bowel sounds Extremities Exam Extremities exam: Present normal inspection and full ROM Back Exam Back exam: Present normal inspection and full ROM Neurological Exam Neurological exam: Present alert, oriented X3 and CN II-XII intact Psychiatric Psychiatric exam: Present normal affect and normal mood Skin Skin exam: Present warm, dry, intact and normal color Course Quality Measures none Orders Category Date Time Status CT Screening NOW Care 01/20/25 09:46 Active Cornice Maker NOW Care 01/20/25 09:23 Active Continuous Pulse Oximetry NOW Care 01/20/25 09:23 Completed EKG (ED ONLY) *Do not use* NOW Care 01/20/25 07:57 Completed Insert IV NOW Care 01/20/25 09:[address] abdomen pelvis w con Stat Exams 01/20/25 09:45 Completed EKG (ED Only) Stat Exams 01/20/25 07:57 Draft US gall bladder Stat Exams 01/20/25 15:39 Completed US pelvic complete Stat Exams 01/20/25 08:10 Completed BNP [B-Type Natriuretic Peptide] Stat Lab 01/20/25 08:30 Completed CBC Stat Lab 01/20/25 08:30 Completed CMP [Comprehensive Metabolic Panel] Stat Lab 01/20/25 08:30 Completed HCG Qualitative,Urine Stat Lab 01/20/25 09:35 Completed Troponin I Stat Lab 01/20/25 08:30 Completed Type and Screen Stat Lab 01/20/25 08:30 Completed UA [Urinalysis] Stat Lab 01/20/25 09:35 Completed Urine Culture Stat Lab 01/20/25 09:35 Received HYDROcodone*/APAP 5/325 [[place] 5/325] Med 01/20/25 08:11 Discontinued 1 tab PO X1 ONE Ondansetron Odt [Zofran Odt] Med 01/20/25 08:11 Discontinued 4 mg PO X1 ONE Pantoprazole Inj [Protonix Inj] Med 01/20/25 09:23 Discontinued 40 mg IVP X1 ONE Sodium Chloride 0.9% 1000 ml [Ns] 1,000 ml Med 01/20/25 09:23 Discontinued IV 999 mls/hr mg Hyd/Al Hyd/Lisa Susp [Maalox Susp] Med 01/20/25 08:11 Discontinued 30 ml PO X1 ONE Vital Signs Vital signs: Vital Signs Temperature 98.3 F 01/20/25 08:04 Pulse Rate 81 01/20/25 08:04 Respiratory Rate 18 01/20/25 08:04 Blood Pressure 169/98 H 01/20/25 08:04 Pulse Oximetry (%) 97 01/20/25 08:04 Oxygen Delivery Method Room Air 01/20/25 08:04 Pulse ox is 97% on room air which is adequate. Discharge Plan Plan Patient Disposition: HOME (Self Care) Prescriptions/Referrals Referrals: No Primary/Family,Physician [Primary Care Provider] - In 1 week Problem List Clinical Impression: Abdominal pain, Enteritis Patient/Caregiver Discharge Instructions Education Materials: ED Abdominal Pain Unkn Cause Fem Additional Instructions: Follow up with [facility]) in [address], [address], [place] [address] Office Number [phone] You can return to the emergency department sooner if symptoms worsen or if you notice any new, concerning issues. Print Language: Chinese Stand Alone Forms: Lori Award Info., Patient Portal Info Letter MDM Narrative MDM hospital course: Lizbeth Nguyen am scribing for and in the presence of Dr. Block. Clinical Information Provided by patient Medical Records Reviewed [facility] Meds/Rx Considered, not Ordered None Labs/Rad/Tests considered, not Ordered None Chronic Illness/Social Conditions which may negatively complicate care or outcome(s)-explain: None or not applicable EKG EKG Interpretation narrative: EKG @ 08:05 AM NSR, rate 72, no acute ischemic changes, no STEMI Lab Interpretation Labs: see narrative above Imaging Radiology reports / interpretation(s): Ordering Physician: Billy Norwood Date of Service: 01/20/25 Procedure(s): US pelvic complete Accession Number(s): [id number] cc: Billy Norwood; Bert Dempsey MD; NO PRIMARY/FAMILY,PHYSICIAN~ Examination: Pelvic ultrasound, transabdominal, complete Technique: Transabdominal ultrasound of the pelvis performed using grayscale imaging Date and time of exam: January 20, 2025 0814 hours INDICATIONS: Abdominal pain beginning 3 days ago FINDINGS: Uterus 9.3 cm endometrial stripe 1.0 cm No uterine mass or intrauterine gestation Right ovary 3.6 cm arterial flow 20 x 14 mm cyst Left ovary 3.2 cm arterial flow 13 x 11 mm cyst Fluid in the bilateral adnexal regions IMPRESSION: Fluid in the bilateral adnexal regions, consider pelvic inflammatory disease Dictated By: Bert Dempsey MD Signed By: <Electronically signed by Bert Dempsey MD in [place]> 01/20/25 0940 Ordering Physician: Yair Block MD Date of Service: 01/20/25 Procedure(s): CT abdomen pelvis w con Accession Number(s): [id number] cc: Yair Block MD; Bert Dempsey MD; NO PRIMARY/FAMILY,PHYSICIAN~ Examination: CT abdomen with intravenous contrast CT pelvis with intravenous contrast 2-D coronal reconstructions 2-D sagittal reconstructions Date and time of exam:January 20, 2025, 1253 hours, comparison December 06, 2024 INDICATIONS: Generalized abdominal pain today, gastric bypass 4 years ago. CTDI: vol (mGy) 12.2 DLP: (mGycm) 686 Technique: Multiple axial sections of the abdomen and pelvis have been obtained. 64 slice high-resolution scanner used. 3 mm axial sections have been obtained, post intravenous injection 60 cc [id number] 2-D sagittal, coronal reconstructions obtained. Low dose protocols were performed. One or more of the following dose reduction techniques were used; automated exposure control, adjustment of the mA and/or KV according to patient size, use of iterative reconstruction technique. Findings: Minimal fluid subcapsular to the liver No focal liver or splenic lesions Mildly distended gallbladder No pancreatic or adrenal mass. No renal or ureteral calculi Mild fluid below the liver Anteverted uterus Urinary bladder intact Focal thickening of small bowel loops, coronal image 57 IMPRESSION: Minimal fluid subcapsular to and below the liver, clinical correlation advised Distended gallbladder, recommend hepatobiliary sonography follow-up. Central focal thickening of small bowel loops, coronal image 57, differential would include entities such as enteritis, Crohn's disease, recommend small bowel series follow-up Dictated By: Bert Dempsey MD Signed By: <Electronically signed by Bert Dempsey MD in [place]> 01/20/25 1332 Ordering Physician: Yair Block MD Date of Service: 01/20/25 Procedure(s): US gall bladder Accession Number(s): [id number] cc: Yair Block MD; Bert Dempsey MD; NO PRIMARY/FAMILY,PHYSICIAN~ Examination: Abdomen sonogram, Limited Date and time of exam: January 20, 2025 1615 hours INDICATIONS: Distended gallbladder on CT examination today, abdominal pain this week Technique: Real-time cortez scale transabdominal sonographic images of the upper abdomen obtained. Findings: Distended gallbladder, negative for gallstones, normal gallbladder wall 0.1 cm Normal common bile duct 0.2 cm Pancreatic head 2.2 cm Liver 16.8 cm fatty infiltration smooth contour no focal liver lesions Normal hepatopedal portal venous flow Patent IVC IMPRESSION: Negative for cholelithiasis, negative for cholecystitis Normal common bile duct. Mild hepatomegaly fatty infiltration no focal liver lesions Dictated By: Bert Dempsey MD Signed By: <Electronically signed by Bert Dempsey MD in OV> 01/20/25 1656 Medication Administration(s) Medication Administration History Discontinued Medications Hydrocodone Bitart/Acetaminophen (Hydrocodone/Apap 5/325 Tablet) 1 tab PO X1 ONE Stop: 01/20/25 08:12 Last Admin: 01/20/25 09:27 Dose: 1 tab Documented By: SANTOSH Al Hydrox/Mg Hydrox/Simethicone (Mg Hyd/Al Hyd/Lisa (Maalox Reg) Susp 30 Ml Udc) 30 ml PO X1 ONE Stop: 01/20/25 08:12 Last Admin: 01/20/25 09:27 Dose: 30 ml Documented By: SANTOSH Sodium Chloride (Ns) 1,000 mls @ 999 mls/hr IV .Q1H1M ONE Stop: 01/20/25 10:23 Last Infusion: 01/20/25 10:50 Dose: Infused Documented By: Admin: 01/20/25 09:49 Dose: 999 mls/hr Documented By: SANTOSH Ondansetron HCl (Ondansetron Odt 4 Mg Tabrap) 4 mg PO X1 ONE; Protocol Stop: 01/20/25 08:12 Last Admin: 01/20/25 09:27 Dose: 4 mg Documented By: SANTOSH Pantoprazole Sodium (Pantoprazole Inj 40 Mg Vial) 40 mg IVP X1 ONE Stop: 01/20/25 09:24 Last Admin: 01/20/25 09:49 Dose: 40 mg Documented By: SANTOSH See above Diagnosis Most likely dx, and/or detailed dx discussion: Abdominal pain Enteritis Dispositon Disposition: Discharge Home
[2025-01-20 10:05] LABS: HCG Qualitative,Urine Negative
[2025-01-20 10:12] LABS: B-Type Natriuretic Peptide 47 pg/mL (0-100)
[2025-01-20 10:36] VITALS: BP 138/81; PULSE 66; RESP 19; TEMP 37; O2SAT 97
[2025-01-20 12:16] VITALS: BP 145/90; PULSE 62; RESP 18; TEMP 36.8; O2SAT 99
[2025-01-20 14:43] VITALS: BP 176/99; PULSE 63; RESP 17; TEMP 36.9; O2SAT 99
--- NOTE | 2025-01-20 15:39 | XR_ITS ---
Examination: Abdomen sonogram, Limited Date and time of exam: January 20, 2025 1615 hours INDICATIONS: Distended gallbladder on CT examination today, abdominal pain this week Technique: Real-time cortez scale transabdominal sonographic images of the upper abdomen obtained. Findings: Distended gallbladder, negative for gallstones, normal gallbladder wall 0.1 cm Normal common bile duct 0.2 cm Pancreatic head 2.2 cm Liver 16.8 cm fatty infiltration smooth contour no focal liver lesions Normal hepatopedal portal venous flow Patent IVC IMPRESSION: Negative for cholelithiasis, negative for cholecystitis Normal common bile duct. Mild hepatomegaly fatty infiltration no focal liver lesions
[2025-01-20 18:20] VITALS: BP 128/78; PULSE 76
== END 2025-01-20 18:20 | disposition home or self-care (01) ==
PROVIDERS: Nurse Practitioner Family; Emergency Provider Family Medicine
DX: K52.9 Noninfective gastroenteritis and colitis, unspecified (principal); K76.0 Fatty (change of) liver, not elsewhere classified; K82.8 Other specified diseases of gallbladder; I10 Essential (primary) hypertension
CPT/HCPCS: 36415; 74177; 76705; 76856; 80053; 81001; 81025; 83880; 84484; 85025; 86850; 86900; 86901; 87086; 93005; 99284; A4649; J2470; J7030; Q0162; Q9963; Q9967; A9270